=== PATIENT | female | born 1950 | race Two or more races ===

== ENCOUNTER 2016-09-01 17:41 | Emergency (ER) | payer OTHER ==
[~2016-09-01] VITALS: Ht 160 cm; Wt 101.6 kg
[2016-09-01 18:45] LABS: Basophils # (auto) 0.1 uL; Eosinophils # (auto) 0.4 uL; Hematocrit 36.2 % (36.0-46.0); Hemoglobin 11.3 g/dL (12.2-16.2); Lymphocytes # (auto) 2.3 uL; Mean Corpuscular Hemoglobin 29.7 pg (28.0-32.0); Mean Corpuscular Hgb Conc. 31.1 g/dL (32.0-36.0); Mean Corpuscular Volume 95.5 fL (80.0-100.0); Mean Platelet Volume 8.1 fL (7.4-10.4); Monocytes # (auto) 0.7 uL; Monocytes % (auto) 9.7 % (0.0-12.0); Neutrophils # (auto) 3.9 uL; Neutrophils % (auto) 53.3 % (37.0-80.0); Platelet Count (auto) 377 10^3/uL (140-450); Red Cell Distribution Width 16.3 % (11.6-16.0); White Blood Cell 7.3 10^3/uL (4.4-10.8)
[2016-09-01 19:00] LABS: Albumin 3.6 g/dL (3.4-5.0); BUN/Creatinine Ratio 22.6; Calcium 8.1 mg/dL (8.5-10.1)
[2016-09-01 19:03] LABS: Bilirubin, Total 0.4 mg/dL (0.2-1.0); Total Protein 6.7 g/dL (6.4-8.2)
[2016-09-01 19:11] LABS: B-Type Natriuretic Peptide 30.27 pg/mL (0-100)
[2016-09-01 19:39] LABS: Temperature: 21.9 C (20.0-25.0)
[2016-09-01 23:06] LABS: INR 0.92 (0.9-1.15); Partial Thromboplastin Time 25.2 sec (22.64-33.71); Prothrombin Time 9.5 sec (9.37-12.3)
[2016-09-01 23:57] LABS: Urine RBC None Seen /hpf (0 - 4)
[2016-09-02 00:07] LABS: Urine Bilirubin Negative (Negative); Urine Blood Negative /uL (Negative); Urine Color Yellow (Yellow); Urine Glucose Normal (Normal); Urine Ketone Negative (Negative); Urine Nitrite Negative (Negative); Urine Squamous Epithelial Cell FEW /hpf (<5); Urine Urobilinogen Normal (Negative); Urine pH 6.5 (5.0-8.0)
[2016-09-02] MEDS ORDERED: IOHEXOL 350 MG/ML 100ML IJ ONE (00:23)
[2016-09-02 02:00] VITALS: BP 135/59
== END 2016-09-02 02:50 | disposition home or self-care (01) ==
LOC: ER 17:48
DX: E03.9 Hypothyroidism, unspecified (principal); E11.9 Type 2 diabetes mellitus without complications; I10 Essential (primary) hypertension; M19.90 Unspecified osteoarthritis, unspecified site; Z87.891 Personal history of nicotine dependence; Z88.0 Allergy status to penicillin
CPT/HCPCS: 36415; 71010; 71275; 80053; 81001; 83880; 84443; 84484; 85025; 85379; 85610; 85730; 93005; 93970; 99285; Q9967

== ENCOUNTER 2017-09-17 12:55 | Emergency (ER) | payer OTHER ==
[~2017-09-17] VITALS: Ht 160 cm; Wt 91.2 kg
[2017-09-17 14:12] LABS: Basophils # (auto) 0.1 uL; Basophils % (auto) 0.8 % (0.0-2.0); Eosinophils # (auto) 0.4 uL; Hematocrit 42.3 % (36.0-46.0); Hemoglobin 13.9 g/dL (12.2-16.2); Lymphocytes # (auto) 2.3 uL; Lymphocytes % (auto) 25.1 % (10.0-50.0); Mean Corpuscular Hemoglobin 27.8 pg (28.0-32.0); Mean Corpuscular Hgb Conc. 32.8 g/dL (32.0-36.0); Mean Corpuscular Volume 84.7 fL (80.0-100.0); Monocytes # (auto) 0.7 uL; Monocytes % (auto) 7.4 % (0.0-12.0); Neutrophils # (auto) 5.7 uL; Neutrophils % (auto) 62.7 % (37.0-80.0); Nucleated Red Blood Cells % 0.1 %; Platelet Count (auto) 275 10^3/uL (140-450); Red Cell Distribution Width 17.6 % (11.8-14.3); White Blood Cell 9.1 10^3/uL (4.4-10.8)
[2017-09-17 14:43] LABS: Alanine Aminotransferase 40 U/L (13-56); Albumin 3.2 g/dL (3.4-5.0); Alkaline Phosphatase 113 U/L (45-117); Anion Gap 8 (5-15); Aspartate Aminotransferase 35 U/L (15-37); BUN/Creatinine Ratio 16.3; Bilirubin, Total 0.3 mg/dL (0.2-1.0); Blood Urea Nitrogen 17 mg/dL (7-18); Carbon Dioxide 26 mmol/L (21-32); Chloride 102 mmol/L (98-107); GFR African American 68 mL/min; GFR Non-African American 56 mL/min; Glucose 388 mg/dL (74-106); Potassium 3.7 mmol/L (3.5-5.1); Sodium 136 mmol/L (136-145); Total Protein 7.3 g/dL (6.4-8.2)
[2017-09-17 15:14] VITALS: BP 126/51
== END 2017-09-17 15:19 | disposition home or self-care (01) ==
LOC: ER 12:55
DX: R07.89 Other chest pain (principal); K29.70 Gastritis, unspecified, without bleeding; I10 Essential (primary) hypertension; J45.909 Unspecified asthma, uncomplicated; E11.65 Type 2 diabetes mellitus with hyperglycemia; E78.5 Hyperlipidemia, unspecified; Z88.0 Allergy status to penicillin; Z90.49 Acquired absence of other specified parts of digestive tract; Z90.710 Acquired absence of both cervix and uterus; Z87.891 Personal history of nicotine dependence
CPT/HCPCS: 36415; 71046; 80053; 84484; 85025; 93005